=== PATIENT | female | born 1945 | race Caucasian/White ===

== ENCOUNTER 2018-02-21 09:32 | Outpatient (CLI) | payer MEDICARE, MEDICAID ==
[2018-02-21 10:37] LABS: Estimated GFR-MDRD - POC Greater than 90
[2018-02-21] MEDS ORDERED: Gadobenate Dimeglumine 529 MG/1 ML (20ML VIAL) ONE (10:51)
== END 2018-02-21 09:33 | disposition home or self-care (01) ==
LOC: BICMRI 09:32
PROVIDERS: ATTEND Internal Medicine Infectious Disease
DX: S91.001A Unspecified open wound, right ankle, initial encounter (principal)
CPT/HCPCS: 82565; A9579

== ENCOUNTER 2018-12-16 16:03 | Inpatient (IN) | payer MEDICARE, MEDICAID ==
[2018-12-16] MEDS ORDERED: Fentanyl 100 MCG/2 ML VIAL ONE (16:34)
--- NOTE | 2018-12-16 16:57 | RAD ---
XR Hip Rt 2-3 View History: [Pain] Comparison: None. Findings: Nondisplaced intertrochanteric fracture right femur. Visualized obturator ring is intact. Impression: Nondisplaced intertrochanteric fracture right femur.
[2018-12-16 17:03] LABS: #Lymphocytes 1.5 thou/uL (1.20-3.40); #Monocytes 0.4 thou/uL (0.11-0.59); #Neutrophils 4.5 thou/uL (1.40-6.50); %Basophils 0.6 % (0.0-1.0); %Eosinophils 0.4 % (0.0-10.0); %Lymphocytes 22.8 % (21.0-51.0); %Monocytes 5.5 % (0.0-10.0); %Neutrophils 70.7 % (42.0-75.0); Hemoglobin 11.8 g/dL (12.0-16.0); Mean Corpuscular HGB CONC 33.5 g/dL (32.0-36.0); Mean Corpuscular Volume 95.5 fL (78.0-98.0); Mean Platelet Volume 7.1 fL (7.4-10.4); Platelet Count 392 thou/uL (130-400); RBC Distribution Width 11.4 % (11.5-14.5); White Blood Cell (WBC) Count 6.4 thou/uL (4.8-10.8)
[2018-12-16 17:07] LABS: PTT 31.7 SEC (22.9-36.1)
[2018-12-16 17:30] LABS: ALT (SGPT) 8 U/L (8-55); AST (SGOT) 15 U/L (5-34); Albumin 4.2 g/dL (3.4-4.8); Alkaline Phosphatase 101 U/L (40-150); Anion Gap 18 mmol/L (10-20); BUN (Urea Nitrogen) 13 mg/dL (9.8-20.1); Bilirubin, Total 0.4 mg/dL (0.2-1.2); Calc. Creatinine Clearance 0 mL/min (70-130); Calcium 9.5 mg/dL (7.8-10.44); Carbon Dioxide 24 mmol/L (23-31); Chloride 103 mmol/L (98-107); Estimated GFR-MDRD 79; Globulin 2.8 g/dL (2.4-3.5); Glucose 108 mg/dL (83-110); Potassium 3.7 mmol/L (3.5-5.1); Sodium 141 mmol/L (136-145)
--- NOTE | 2018-12-16 17:39 | RAD ---
RADIOGRAPH CHEST 1 VIEW: DATE: 12/16/2018 HISTORY: 73-year-old female status post acute chest trauma from fall FINDINGS: The image is overexposed. The central portions of the lungs are not visible because of this poor tech nique. There is no gross evidence of pneumothorax, pulmonary edema, or consolidation. The lateral costophrenic angles are not effaced. No cardiomegaly. IMPRESSION: 1) Limited study. 2) no acute findings.
[2018-12-16] MEDS ORDERED: Dextrose 5% in Water 1,000 ML IV PRN (17:43)
[2018-12-16] MEDS ORDERED: Ondansetron ODT 4 MG TAB PO PRN (17:43)
[2018-12-16] MEDS ORDERED: Dextrose 50% Abboject 50 ML SYRINGE SLOW IVP PRN (17:43)
[2018-12-16] MEDS ORDERED: Ondansetron PF 4 MG/2 ML Vial IVP PRN (17:43)
[2018-12-16] MEDS ORDERED: traMADol HCl 50 MG TAB PO PRN ×2 (17:49)
[2018-12-16] MEDS ORDERED: Ibuprofen 800 MG TAB PO PRN (17:49)
[2018-12-16] MEDS: Acetaminophen 1,000 MG in Premix Bag 1 BAG IVPB SCH (20:40)
[2018-12-16] MEDS: Sodium Chloride 0.9% 1,000 ML IV SCH (20:40)
[2018-12-16] MEDS: Famotidine 20 MG TAB PO SCH (20:41)
--- NOTE | 2018-12-16 20:43 | HP ---
ATTENDING SURGEON: Dr. Welch. CONSULTATIONS: Orthopedics, Dr. Marshall. HISTORY OF PRESENT ILLNESS: The patient is a 73-year-old woman, who was ambulating utilizing her cane in a dark movie theater, when she missed a step and fell landing on her right hip. The patient was brought to the emergency department by ground EMS, underwent evaluation and examination and was noted to have a right intertrochanteric hip fracture. The patient denied any loss of consciousness or syncopal type event prior to her fall. ALLERGIES: NONE. CURRENT MEDICATIONS: Eyedrops for glaucoma, the patient is unsure of the actual name. PAST MEDICAL HISTORY: Glaucoma. PAST SURGICAL HISTORY: Right open ankle fracture, irrigation and debridement grafting. SOCIAL HISTORY: The patient is a former tobacco user. She smokes approximately a pack of cigarettes per day for 25 years and quit approximately 10 years ago. Denies drug or alcohol use. She currently lives independently at [facility]. REVIEW OF SYSTEMS: A 10-point review of systems is negative as otherwise stated. PHYSICAL EXAMINATION: VITAL SIGNS: Blood pressure 137/89, heart rate 60, respirations 16, oxygen saturations 97% on room air, and temperature is 98.5. GENERAL: The patient is resting comfortably in the ER bed. She is awake, alert, and oriented x3. [place] Coma Scale is 15. HEENT. Head is normocephalic and atraumatic. Eyes, extraocular motion intact. PERRLA bilaterally. Ears are atraumatic without discharge. Nose atraumatic without discharge. Oropharynx is clear. NECK: Nontender. Trachea is midline. No JVD. CHEST: Clear to auscultation with good inspiratory and expiratory effort. HEART: Regular rate and rhythm. ABDOMEN: Soft, flat, and nontender with active bowel sounds. PELVIS: Stable with tenderness to palpation to the right hip consistent with her fracture. EXTREMITIES: Neurovascularly intact x4. The patient has decreased sensation on the lateral aspect of her right foot, which she states is consistent from her previous injury. The patient is also noted to have large bulky graft of muscle tissue noted. BACK: Atraumatic and nontender. LABORATORY FINDINGS: White blood cell count 6.4, hemoglobin 11.8, hematocrit 35.3, platelets 392. Sodium 141, potassium 3.7, chloride 103, CO2 of 24, BUN 13, creatinine 0.72, glucose 108. LFTs are unremarkable. PT 13, INR 1.0, PTT 31.7. RADIOGRAPHS: AP chest x-ray shows no acute findings. Views of the right hip show a nondisplaced intertrochanteric right femur fracture. ASSESSMENT: 1. Status post ground level fall. 2. Right intertrochanteric hip fracture. 3. Acute pain secondary to above. PLAN: Plan will be to admit the patient to the surgical floor. She will have pain control, pulmonary toilet, gastritis, mechanical VTE prophylaxis. The patient will be made n.p.o. after midnight. Postoperatively, we will have the patient work with Physical and Occupational Therapy. The patient normally utilizes a walker, but will likely still need a short stay with rehab. Evaluation, laboratory and radiographic findings have been discussed with Dr. Welch prior to this dictation. Job ID: [id number]
[2018-12-16] MEDS: Morphine 2 MG/ML SYRINGE SLOW IVP PRN (20:47)
[2018-12-16 23:00] VITALS: BMI 23.8
[2018-12-17] MEDS: Acetaminophen 1,000 MG in Premix Bag 1 BAG IVPB SCH ×3 (00:44→11:52)
[2018-12-17] MEDS: Morphine 2 MG/ML SYRINGE SLOW IVP PRN ×2 (05:28→09:20)
[2018-12-17] MEDS: Sodium Chloride 0.9% 1,000 ML IV SCH (05:28)
[2018-12-17 05:32] LABS: #Lymphocytes 1.5 thou/uL (1.20-3.40); #Monocytes 0.5 thou/uL (0.11-0.59); #Neutrophils 5.2 thou/uL (1.40-6.50); %Basophils 0.4 % (0.0-1.0); %Eosinophils 0.5 % (0.0-10.0); %Lymphocytes 20.1 % (21.0-51.0); %Monocytes 6.5 % (0.0-10.0); %Neutrophils 72.5 % (42.0-75.0); Hemoglobin 10.2 g/dL (12.0-16.0); Mean Corpuscular Hemoglobin 31.8 pg (27.0-31.0); Mean Corpuscular Volume 96.2 fL (78.0-98.0); Mean Platelet Volume 7.1 fL (7.4-10.4); Platelet Count 321 thou/uL (130-400); RBC Distribution Width 11.5 % (11.5-14.5); Red Blood Cell (RBC) Count 3.21 mill/uL (4.20-5.40); White Blood Cell (WBC) Count 7.2 thou/uL (4.8-10.8)
[2018-12-17 05:52] LABS: Anion Gap 13 mmol/L (10-20); BUN (Urea Nitrogen) 11 mg/dL (9.8-20.1); Calc. Creatinine Clearance 90 mL/min (70-130); Calcium 8.5 mg/dL (7.8-10.44); Carbon Dioxide 23 mmol/L (23-31); Chloride 105 mmol/L (98-107); Estimated GFR-MDRD Greater than 90; Glucose 96 mg/dL (83-110); Potassium 3.8 mmol/L (3.5-5.1); Sodium 137 mmol/L (136-145)
[2018-12-17] MEDS ORDERED: CEFAZOLIN 2 GM in Premix Bag 1 BAG IVPB SCH (08:00)
--- NOTE | 2018-12-17 09:14 | CON ---
DATE OF CONSULTATION: This is Akil Russo PA-C dictating a report for Dickson Marshall MD. HISTORY OF PRESENT ILLNESS: We were asked by ER and Trauma to see the patient. The patient [facility] She was walking out to use the restroom, stumbled landing on her right hip sustaining a right hip fracture. No other injuries. No loss of consciousness. Her leg and hip area are very tender with and without movement and with palpation, but no numbness or tingling down the leg. She does have a chronic foot drop on that right side from a fracture years ago with skin damage. She does have a deformity anteriorly from a skin graft and muscle graft on that foot with a chronic foot drop with an inward rotation. Sensations though, she can move her toes and can feel everything. ALLERGIES: NONE. CURRENT MEDICATIONS: Glaucoma eye drops. PAST MEDICAL HISTORY: Glaucoma. PAST SURGICAL HISTORY: Ankle fracture with skin grafts and muscle grafting. SOCIAL HISTORY: Currently, a nonsmoker. No alcohol or drug use. She lives at [facility]. FAMILY HISTORY: For this visit is noncontributory. REVIEW OF SYSTEMS: No chest pain, shortness of breath, or bowel or bladder issues. Chronic right lower extremity foot drop, and currently, only positive review of systems is right hip pain. Otherwise, rest of review of systems is discussed and is negative. PHYSICAL EXAMINATION: GENERAL: Well-nourished, well-developed female, alert, pleasant, in no acute distress. Speech, clear. Affect, pleasant. Answers questions appropriately. Alert and oriented x3. HEENT: Normal exam. Face, symmetric. Tongue, midline. NECK: Supple. Trachea, midline. UPPER EXTREMITIES: Equal size, shape, symmetry. Normal bulk and tone. RESPIRATORY: No distress. Breathing at about 16 breaths per minute. LOWER EXTREMITIES: Right hip; no edema or ecchymoses currently, but very tender to palpation and with any movement. The patient squawks a little bit. Lower extremities are equal size, shape, symmetry. Normal bulk and tone with the exception of the right ankle, which does have an obvious deformity to the anterior tib-fib ankle region from muscle grafting and skin grafting. Her ankle is mildly inward rotated with a slight foot drop. Otherwise, DP and PT pulses are equal and symmetric. CURRENT VITAL SIGNS: Blood pressure 114/68, pulse 60, respirations 16, temperature 98.0. LABORATORY DATA: X-ray shows a right intertrochanteric fracture. ASSESSMENT: Right intertrochanteric fracture. PLAN: We will get the patient set up for an open reduction and internal fixation of the right hip using a TFN short versus long nail. The patient has discussed options with Dr. Marshall. He has gone over the risks and benefits of surgery. Her questions and concerns have been addressed and answered, and she is amenable to go forth with surgery. We will get her on the surgery schedule. Antibiotics were ordered. Job ID: [id number]
[2018-12-17] MEDS: Famotidine 20 MG TAB PO SCH ×2 (09:23→21:29)
[2018-12-17] MEDS ORDERED: PROPOFOL 200 MG/20 ML VIAL ONE (10:19)
[2018-12-17] MEDS ORDERED: Lidocaine 1% PF 5 ML VIAL ONE (10:19)
[2018-12-17] MEDS ORDERED: Rocuronium Bromide 10 MG/ML (10ML VIAL) ONE (10:19)
[2018-12-17] MEDS ORDERED: Dexamethasone 20 MG/5 ML VIAL ONE (10:19)
[2018-12-17] MEDS ORDERED: Ondansetron PF 4 MG/2 ML Vial ONE (10:19)
[2018-12-17] MEDS ORDERED: ePHEDrine 50 MG/ML VIAL ONE (10:19)
[2018-12-17] MEDS ORDERED: Fentanyl 100 MCG/2 ML VIAL ONE ×4 (12:17→14:34)
[2018-12-17] MEDS ORDERED: Lidocaine 2% Jelly 5 ML TUBE ONE (12:17)
[2018-12-17] MEDS ORDERED: Milk Of Magnesia 30 ML UDCUP PO PRN (12:22)
[2018-12-17] MEDS ORDERED: Ondansetron PF 4 MG/2 ML Vial IVP PRN (12:22)
[2018-12-17] MEDS ORDERED: Bisacodyl 10 MG SUPP PR PRN (12:22)
[2018-12-17] MEDS ORDERED: Cepastat Lozenges 1 LOZ PO PRN (12:22)
[2018-12-17] MEDS ORDERED: Fleet Enema 133 ML BOT PR PRN (12:22)
[2018-12-17] MEDS ORDERED: Ondansetron ODT 4 MG TAB PO PRN (12:22)
[2018-12-17] MEDS ORDERED: HYDROcodone/Acetaminophen 5/325 mg Tablet PO PRN (13:00)
--- NOTE | 2018-12-17 13:02 | PRG ---
DATE OF SERVICE: 12/17/2018 SUBJECTIVE: The patient is currently on the surgical floor. She is hospital day 2, status post ground level fall which she sustained a right hip fracture. She has currently been n.p.o., awaiting operative intervention by Orthopedics today. She had no issues overnight. OBJECTIVE: VITAL SIGNS: Temperature is 97.9, heart rate 52, blood pressure 116/67, respirations 12, oxygen saturation 98% on room air. GENERAL: The patient is resting comfortably in bed. She is awake, alert, and oriented x3. [place] Coma Scale is 15. HEENT: Unremarkable. LUNGS: Clear to auscultation with good inspiratory and expiratory effort. HEART: Regular rate and rhythm. ABDOMEN: Soft, flat, nontender with hypoactive bowel sounds. EXTREMITIES: Neurovascularly intact x4. LABORATORY FINDINGS: White blood cell count 7.2, hemoglobin 10.2, hematocrit 30.9, platelets 321. Sodium 137, potassium 3.8, chloride 105, CO2 of 23, BUN 11, creatinine 0.58, glucose 96. There are no radiographs reviewed this morning. ASSESSMENT/PLAN: 1. Status post ground level fall. 2. Right intertrochanteric hip fracture, awaiting surgical procedure. 3. Acute pain secondary to above. PLAN: Plan will be to continue n.p.o. status until postoperatively at which time we will change her pain medications to p.o. Begin working with Physical and Occupational Therapy and likely VTE prophylaxis tomorrow. Job ID: [id number]
[2018-12-17] MEDS ORDERED: Ondansetron HCl/PF 4 MG/2 ML Vial IVP PRN (13:15)
[2018-12-17] MEDS ORDERED: Promethazine HCl 25 MG/ML VIAL IM PRN (13:15)
[2018-12-17] MEDS ORDERED: Promethazine HCl 25 MG/ML VIAL SLOW IVP PRN (13:15)
[2018-12-17] MEDS: CEFAZOLIN 2 GM in Premix Bag 1 BAG IVPB SCH ×2 (15:32→21:30)
[2018-12-17] MEDS: HYDROcodone/Acetaminophen 5/325 mg Tablet PO PRN ×2 (15:40→22:23)
[2018-12-17] MEDS: D5 1/2 NS w/20 mEq KCL 1,000 ML IV SCH (18:38)
[2018-12-17] MEDS: Aspirin 81 mg Enteric Coated Tablet PO SCH (21:29)
[2018-12-17] MEDS: Ferrous Gluconate 324 MG TAB PO SCH (21:29)
[2018-12-17] MEDS: Senokot S 8.6-50 MG TAB PO SCH (21:30)
[2018-12-18 05:37] LABS: Hemoglobin 9.3 g/dL (12.0-16.0); Mean Corpuscular Hemoglobin 32.1 pg (27.0-31.0); Mean Corpuscular Volume 97.4 fL (78.0-98.0); Mean Platelet Volume 7.2 fL (7.4-10.4); Platelet Count 273 thou/uL (130-400); RBC Distribution Width 11.6 % (11.5-14.5); Red Blood Cell (RBC) Count 2.88 mill/uL (4.20-5.40)
[2018-12-18] MEDS: D5 1/2 NS w/20 mEq KCL 1,000 ML IV SCH ×2 (06:01→16:43)
[2018-12-18 06:06] LABS: ALT (SGPT) 8 U/L (8-55); AST (SGOT) 12 U/L (5-34); Albumin 3.2 g/dL (3.4-4.8); Alkaline Phosphatase 78 U/L (40-150); Anion Gap 11 mmol/L (10-20); BUN (Urea Nitrogen) 9 mg/dL (9.8-20.1); Bilirubin, Total 0.3 mg/dL (0.2-1.2); Calc. Creatinine Clearance 82 mL/min (70-130); Calcium 8.4 mg/dL (7.8-10.44); Carbon Dioxide 25 mmol/L (23-31); Chloride 107 mmol/L (98-107); Estimated GFR-MDRD Greater than 90; Glucose 164 mg/dL (83-110); Potassium 3.7 mmol/L (3.5-5.1); Protein, Total 5.2 g/dL (6.0-8.3); Sodium 139 mmol/L (136-145)
[2018-12-18] MEDS: HYDROcodone/Acetaminophen 5/325 mg Tablet PO PRN ×4 (06:06→20:45)
[2018-12-18] MEDS: Aspirin 81 mg Enteric Coated Tablet PO SCH ×2 (08:48→20:44)
[2018-12-18] MEDS: Senokot S 8.6-50 MG TAB PO SCH ×2 (08:49→20:45)
[2018-12-18] MEDS: Ferrous Gluconate 324 MG TAB PO SCH ×2 (08:49→20:44)
[2018-12-18] MEDS: Famotidine 20 MG TAB PO SCH ×2 (08:49→20:44)
[2018-12-18] MEDS: Multivitamin W/ Minerals 1 TAB PO SCH (08:49)
[2018-12-18] MEDS: Cyclobenzaprine 10 MG TAB PO PRN (08:53)
--- NOTE | 2018-12-18 14:52 | PRG ---
DATE OF SERVICE: 12/18/2018 SUBJECTIVE: The patient remains on the surgical floor. She is status post ground level fall when she sustained a right intertrochanteric hip fracture, which has undergone surgical repair by Dr. Marshall. She had no issues overnight. She states that she actually got some sleep. She is tolerating a diet this morning. Her pain is controlled and she is awaiting Physical Therapy to work with her. We also discussed this morning placement and let her know that the case workers will begin pushing for this through insurance and finding our options tomorrow. OBJECTIVE: VITAL SIGNS: Temperature is 97.9, heart rate 60, blood pressure 105/52, respirations 16, oxygen saturation is 96% on room air. GENERAL: The patient is resting comfortably in bed. She is awake, alert, and oriented. [place] Coma Scale is 15. HEENT: Unremarkable. LUNGS: Clear to auscultation with good inspiratory and expiratory effort. HEART: Regular rate and rhythm. ABDOMEN: Soft, flat, nontender with active bowel sounds. EXTREMITIES: Neurovascularly intact x4. Postop dressing is clean, dry, and intact. LABORATORY FINDINGS: White blood cell count 8.0, hemoglobin 9.3, hematocrit 28.1, platelets 273. Sodium 139, potassium 3.7, chloride 107, CO2 of 25, BUN 9, creatinine 0.64, glucose 164. There are no radiographs reviewed this morning. ASSESSMENT/PLAN: 1. Status post ground level fall. 2. Postop day 1 status post open reduction and internal fixation for right intertrochanteric hip fracture. PLAN: Plan will be to continue supportive care, physical and occupational therapy and discuss placement tomorrow. Job ID: [id number]
[2018-12-19 05:27] LABS: Mean Corpuscular Hemoglobin 32.1 pg (27.0-31.0); Mean Platelet Volume 7.1 fL (7.4-10.4); Platelet Count 250 thou/uL (130-400); RBC Distribution Width 11.7 % (11.5-14.5); White Blood Cell (WBC) Count 6.6 thou/uL (4.8-10.8)
[2018-12-19] MEDS: Cyclobenzaprine 10 MG TAB PO PRN (06:19)
[2018-12-19] MEDS: Aspirin 81 mg Enteric Coated Tablet PO SCH ×2 (08:01→20:55)
[2018-12-19] MEDS: Multivitamin W/ Minerals 1 TAB PO SCH (08:01)
[2018-12-19] MEDS: Senokot S 8.6-50 MG TAB PO SCH ×2 (08:01→20:43)
[2018-12-19] MEDS: Famotidine 20 MG TAB PO SCH ×2 (08:01→20:43)
[2018-12-19] MEDS: Ferrous Gluconate 324 MG TAB PO SCH ×3 (08:01→20:43)
[2018-12-19] MEDS: Polyethylene Glycol 3350 17 GM Packet PO SCH (08:02)
[2018-12-19] MEDS: HYDROcodone/Acetaminophen 5/325 mg Tablet PO PRN ×2 (08:02→20:43)
[2018-12-19] MEDS: D5 1/2 NS w/20 mEq KCL 1,000 ML IV SCH (09:55)
[2018-12-19] MEDS ORDERED: Ketorolac Tromethamine 30 MG/ML VIAL IVP SCH (11:15)
--- NOTE | 2018-12-19 12:48 | PRG ---
DATE OF SERVICE: 12/19/2018 SUBJECTIVE: The patient is currently on the surgical floor. She is status post ground level fall when she sustained a right hip fracture which has undergone repair. She had no issues overnight. This morning, she is working with occupational therapy and is awaiting physical therapy. She was having a fair amount of pain this morning during therapy, so we will adjust her pain medicines in hopes that she is able to work with physical therapist. OBJECTIVE: VITAL SIGNS: Temperature is 98.4, heart rate 66, blood pressure 116/47, respirations 16, and oxygen saturation 98% on room air. GENERAL: The patient is just returned to bed with the therapist. She is awake, alert, and oriented x3. [place] Coma Scale 15. HEENT: Unremarkable. LUNGS: Clear to auscultation with good inspiratory and expiratory efforts. HEART: Regular rate and rhythm. ABDOMEN: Soft, flat, nontender with active bowel sounds. EXTREMITIES: Neurovascularly intact x4. Postop dressing remains clean, dry, and intact. LABORATORY FINDINGS: White blood cell count 6.6, hemoglobin 8.0, hematocrit 25.1, and platelets 250. Sodium 139, potassium 3.7, chloride 107, CO2 of 25, BUN 9, creatinine 0.64, and glucose 164. There are no radiographs reviewed this morning. ASSESSMENT: 1. Status post ground level fall. 2. Postop day #2, status post open reduction and internal fixation of right intertrochanteric hip fracture. PLAN: Plan will be to continue supportive care, physical and occupational therapy, adjust pain medications, and await placement determination. The patient was evaluated this morning with Dr. Brunson during rounds. Job ID: [id number]
--- NOTE | 2018-12-19 15:04 | OP ---
DATE OF PROCEDURE: 12/17/2018 STOCK REPAIRER: Karan PREOPERATIVE DIAGNOSIS: Intertrochanteric fracture of right hip, subtrochanteric extension. POSTOPERATIVE DIAGNOSIS: Intertrochanteric fracture of right hip, subtrochanteric extension. PROCEDURE: Intramedullary fixation of right intertrochanteric hip fracture. ANESTHESIA: BLOOD LOSS: 100. SPECIMEN: None. DRAINS: None. COMPLICATIONS: None. IMPLANTS USED: Yolette TFNA 95-mm lag screw, 400-mm nail with a 46-mm distal locking screw. PROCEDURE IN DETAIL: After informed consent was obtained in the preoperative holding area, the patient was taken to the operative suite and positioned appropriately on the fracture table. Spinal anesthetic was placed and the right hip was then prepped and draped in the usual sterile fashion. Prior to incision, a time-out was called and all members of surgical team agreed upon site, surgeon, and patient. Patient also received preoperative antibiotics prior to incision. Once this was confirmed, fluoroscopy was brought into the field and we evaluated the reduction. The fracture table was used with inline longitudinal traction and adduction to appropriately reduce the fracture. Once we were happy with near anatomic reduction, we then made a linear incision 2 fingerbreadths above the greater trochanter noted by palpation. The subcutaneous layers were opened sharply. I encountered the IT band. This was incised sharply and blunt dissection using a finger was then carried down to the trochanter which was noted by palpation. We used a guidepin to enter the posterior 2/3 of the greater trochanter. Guidepin was then used to enter the canal, over reamed with a 15 mm entry reamer. Once this was established, the prosthesis was then slid down into place and malleted gently to the adequate height and noted with fluoroscopy. The lateral entry outrigger was then placed and we used a 2-incision technique to establish the hip screw fixation point. A guidepin was then placed into the femoral head using the outrigger. The measurement was taken. The appropriate size was chosen. Lateral entry broaching reamer was then used using the outrigger and the final screw was then placed. The anti-rotational gate was then closed and the distal interlocking screw was placed for final construct, which appeared near anatomic on radiographs. Both incisions (2-incision technique) were copiously irrigated with normal saline. Primary closure was accomplished with #1 Vicryl at the IT band. Subcutaneous layer was closed with 2-0 Vicryl, and stainless steel nithya were used to reapproximate the skin. Final x-rays demonstrated near anatomic reduction, good hardware fixation. The procedure was terminated without any complications. The patient was taken to recovery room in stable condition. Job ID: [id number]
[2018-12-20] MEDS: D5 1/2 NS w/20 mEq KCL 1,000 ML IV SCH (04:10)
[2018-12-20 05:32] LABS: Hemoglobin 7.9 g/dL (12.0-16.0)
[2018-12-20] MEDS ORDERED: HYDROcodone/Acetaminophen 5/325 mg Tablet PO PRN ×2 (08:17→08:18)
[2018-12-20] MEDS ORDERED: traMADol HCl 50 MG TAB PO PRN (08:19)
[2018-12-20] MEDS: Ferrous Gluconate 324 MG TAB PO SCH (08:53)
[2018-12-20] MEDS: Polyethylene Glycol 3350 17 GM Packet PO SCH (08:53)
[2018-12-20] MEDS: Famotidine 20 MG TAB PO SCH (08:54)
[2018-12-20] MEDS: Aspirin 81 mg Enteric Coated Tablet PO SCH (08:54)
[2018-12-20] MEDS: Multivitamin W/ Minerals 1 TAB PO SCH (08:54)
[2018-12-20] MEDS: Senokot S 8.6-50 MG TAB PO SCH (08:54)
[2018-12-20] MEDS: HYDROcodone/Acetaminophen 5/325 mg Tablet PO PRN (08:54)
[2018-12-20] MEDS ORDERED: Cholecalciferol (Vitamin D3) 400 UNITS TAB PO SCH (09:00)
[2018-12-20] MEDS ORDERED: CHOLECALCIFEROL 400 UNIT PO SCH (09:00)
[2018-12-20 11:59] VITALS: BP 100/58; TEMP 98.5
[2018-12-20] MEDS ORDERED: Acetaminophen 325 MG TAB PO SCH (12:00)
[2018-12-20] MEDS ORDERED: traMADol HCl 50 MG TAB PO SCH (12:30)
--- NOTE | 2018-12-20 20:08 | DIS ---
DATE OF ADMISSION: 12/16/2018 DATE OF DISCHARGE: 12/20/2018 This is Macey Smith NP dictating a report for Jose Antonio Brunson MD. ATTENDING SURGEON: Dr. Welch. CONSULTS: Orthopedics, Dr. Marshall. DISCHARGE ATTENDING: Dr. Brunson. PROCEDURES: 1. On 12/16/2018, chest x-ray shows no acute findings. Right hip x-ray shows nondisplaced intertrochanteric right femur fracture. 2. 12/17/2018, intramedullary fixation of the right intertrochanteric hip fracture by Dr. Marshall. PRIMARY DIAGNOSIS: Right intertrochanteric hip fracture/subtrochanteric extension. SECONDARY DIAGNOSIS: Mechanical fall. DISCHARGE MEDICATIONS: 1. Acetaminophen 650 mg p.o. q.6 hours. 2. Vitamin C 500 mg p.o. b.i.d. 3. Aspirin 81 mg p.o. b.i.d. for 30 days. 4. Dulcolax suppository 10 mg p.r.n. 5. Cepastat lozenges 1 ounce as needed. 6. Vitamin D3 400 units p.o. daily. 7. Flexeril 5 mg p.o. 3 times a day p.r.n. 8. Ferrous gluconate 324 mg p.o. b.i.d. 9. Ibuprofen 800 mg p.o. q.8 hours. 10. Milk of magnesia 300 mg as needed. 11. Multivitamin with minerals one tablet p.o. daily. 12. Senakot S two tablets p.o. b.i.d. 13. Fleet enema as needed. HISTORY OF PRESENT ILLNESS AND HOSPITAL COURSE: This is a 73-year-old female, who was ambulating utilizing her cane in a dark movie theater when she missed the step and fell landing on her right hip. The patient was found to have right intertrochanteric hip fracture. The patient had no loss of consciousness or syncopal type of event prior to her fall. Postop, the patient did have some pain control issues and was on [place] temporarily for pain. On the day of discharge, the patient was examined by Dr. Brunson. The patient had no complaints nor did the family at the present time. The patient's vital signs were stable on the day of discharge and the patient's exam is unremarkable including cardiopulmonary and GI exam. The patient was deemed stable for discharge to [facility] for continued physical and occupational therapy. DISPOSITION: Stable. DISCHARGE INSTRUCTIONS: 1. Location: [facility]term [place]. 2. Diet: Regular diet. 3. Activity: Orthopedic limitations. Partial weightbearing, right lower extremity, hip precautions. FOLLOWUP: Follow up with Dr. Marshall as directed. No need to follow up with Trauma Clinic. Call for any questions. This is just a summary of the hospital course. Job ID: [id number] [facility]
[2018-12-20] MEDS ORDERED: Ascorbic Acid 500 mg Chewable Tablet PO SCH (21:00)
== END 2018-12-20 14:35 | DRG 482 ==
LOC: ERS 16:03 → SURG A 17:43
PROVIDERS: ADMIT Specialist; ATTEND Specialist
PROC: 0QS606Z Reposition Right Upper Femur with Intramedullary Internal Fixation Device, Open Approach (ICD-10-PCS; principal; 2018-12-17)
DX: S72.144A Nondisplaced intertrochanteric fracture of right femur, initial encounter for closed fracture (principal); W10.9XXA Fall (on) (from) unspecified stairs and steps, initial encounter; H40.9 Unspecified glaucoma; Y92.26 Movie house or cinema as the place of occurrence of the external cause; Z87.891 Personal history of nicotine dependence
CPT/HCPCS: 36415; 71045; 76000; 80048; 80053; 85014; 85018; 85025; 85027; 85610; 85730; 93005; 96374; C1713; C1769; J0131; J0690; J1885; J2270; J3010